=== PATIENT | female | born 1975 | race Caucasian/White ===

== ENCOUNTER 2017-09-21 23:38 | Emergency (ER) | payer SELFPAY ==
[~2017-09-21] VITALS: Ht 167.6 cm; Wt 50.0 kg
[~2017-09-21 23:38] MED LIST: ALPR0.5T99 PO; CLIN150 PO; CYCL-36 PO; HYDR-3129 PO; IBUP-238 PO
[2017-09-21 23:41] VITALS: BP 128/84; PULSE 107; PULSE 109; RESP 24; TEMP 99.3; O2SAT 100
--- NOTE | 2017-09-22 03:05 | PD ---
HPI Chief Complaint: Skin Problem Time Seen by Provider: 03:01 Travel History International Travel<30 days: No Contact w/Intl Traveler<30days: No Traveled to known affect area: No History of Present Illness HPI 42-year-old female presents for evaluation of pain in the left axilla. It started 3 days ago after shaving. Throbbing pain, constant, worse with palpation. Denies drainage, fevers or chills. No other complaints. PFSH Past Medical History Musculoskeletal: Yes (DEGENERATIVE DISK DISEASE) ?: Not LMP: hx tubal lig 2006 : 3 Para: 1 Miscarriage: 2 Tubal Ligation: Yes Social History Alcohol Use: Yes (SOCIALLY) Tobacco Use: Yes (/ PPD) Substance Use: Yes Allergies-Medications (Allergen,Severity, Reaction): Coded Allergies: tramadol (Unverified Allergy, Intermediate, Rash, 09/22/17) acetaminophen (Unverified Allergy, Mild, RASH, 09/22/17) amoxicillin (Unverified Allergy, Mild, Rash, 09/22/17) propoxyphene (Unverified Allergy, Mild, RASH, 09/22/17) vancomycin (Unverified Allergy, Mild, Rash, 09/22/17) Reported Meds & Prescriptions Reported Meds & Active Scripts Active No Active Prescriptions or Reported Medications Review of Systems General / Constitutional: No: Fever, Chills Skin: Positive Other (Soft tissue swelling, pain) Physical Exam Narrative GENERAL: Well-developed well-nourished female no acute distress SKIN: Warm and dry. 2 cm fluctuant abscess with surrounding cellulitis in the left axilla. No drainage. HEAD: Atraumatic. Normocephalic. EYES: Pupils equal and round. No scleral icterus. No injection or drainage. ENT: No nasal bleeding or discharge. Mucous membranes pink and moist. NECK: Trachea midline. No JVD. CARDIOVASCULAR: Regular rate and rhythm. No murmur appreciated. RESPIRATORY: No accessory muscle use. Clear to auscultation. Breath sounds equal bilaterally. Data Data Last Documented VS Vital Signs Date Time Temp Pulse Resp B/P (MAP) Pulse Ox O2 Delivery O2 Flow Rate FiO2 09/21/17 23:41 99.3 107 24 128/84 (99) 100 Orders Orders Lidocai-Epi 1%-1:100,000 Inj (Xylocaine- (09/22/17 03:15) Lidocai-Epi 1%-1:100,000 Inj (Xylocaine- (09/22/17 03:15) Wound Culture And Gram Stain (09/22/17 03:02) Clindamycin (Cleocin) (09/22/17 04:15) Ed Discharge Order (09/22/17 04:03) [facility] Medical Decision Making Medical Screen Exam Complete: Yes Emergency Medical Condition: Yes Medical Record Reviewed: Yes Differential Diagnosis Axillary abscess, cellulitis, hydradenitis Narrative Course Plan is for incision and drainage of left axillary abscess, she verbally consents. Wound culture performed. The patient will be started on clindamycin. Procedures Procedure Narrative INCISION AND DRAINAGE OF ABSCESS: The area was prepped and was sterilely draped. A subcutaneous wheal of 1% Xylocaine with epinephrine with a total number 6 mL was used to anesthetize the area. The area was properly anesthetized. A number 11 scalpel was used to make a 1cm incision across the area of the abscess. Cultures were obtained. The abscess was drained an irrigated with normal saline. Diagnosis Primary Impression: Abscess of left axilla Additional Instructions: Medication as prescribed. Warm compresses several times a day 10-15 minutes at a time. Return for new or worsening symptoms. Med/Other Pt SpecificInfo: Prescription(s) given, Wound Care Scripts Clindamycin (Clindamycin) 300 Mg Cap 300 MG PO TID for Infection for 10 Days, CAP 0 Refills Prov: Garrett Rodriguez MD 09/22/17 Disposition: 01 DISCHARGE HOME Condition: Stable Marcel Qureshi Sep 22, 2017 03:05
[2017-09-22] MEDS ORDERED: LIDOCAINE 1%/EPINEPHrine 1:100,000 SOLN 20 ML VIAL INFIL ONE (03:15)
[2017-09-22] MEDS ORDERED: LIDOCAINE 1%/EPINEPHrine 1:100,000 SOLN 50 ML VIAL INFIL ONE (03:15)
[2017-09-22] MEDS ORDERED: CLIN300C5 PO (04:03)
[2017-09-22] MEDS ORDERED: CLINDAMYCIN 150 MG CAP PO ONE (04:15)
== END 2017-09-22 04:19 | disposition home or self-care (01) ==
LOC: NEPD 23:38
DX: L02.412 Cutaneous abscess of left axilla (principal); A49.02 Methicillin resistant Staphylococcus aureus infection, unspecified site; F17.200 Nicotine dependence, unspecified, uncomplicated
CPT/HCPCS: 10060; 86403; 87070; 87186